=== PATIENT | female | born 1970 | race Caucasian/White ===

== ENCOUNTER 2016-12-16 19:02 | Emergency (ER) | payer OTHER ==
[2016-12-16 19:18] VITALS: BP 136/68
--- NOTE | 2016-12-16 20:16 | UC ---
Upper Extremity HPI - HPI Summary HPI Summary: Pt reports that yesterday morning that she was walking across her living room and tripped on guero toy and fell on left side of body, hitting left hip, shoulder and side of head. Pt has history of Muscular dystrophy and previous "frozen shoulder". Pt is left handed. pt woke this morning and felt stiff in left shoulder and hip. Denies LOC or headache - History of Current Complaint Chief Complaint: UCTrauma Stated Complaint: LEFT SIDE AND NECK PAIN/FELL YESTERDAY Time Seen by Provider: 12/16/16 20:06 Hx Obtained From: Patient Hx Last Menstrual Period: 11/28/16 ?: No Onset/Duration: Gradual Onset, Lasting Hours Severity Initially: Mild Severity Currently: Mild Character: Dull, Aching, Stiffness Aggravating Factor(s): Movement Associated Signs And Symptoms: Positive: Weakness - secondary to history of MD Related History: Dominant Hand Left - Risk Factors Non-Orthopedic Risk Factor: Negative - Allergies/Home Medications Allergies/Adverse Reactions: Allergies Allergy/AdvReac Type Severity Reaction Status Date / Time No Known Allergies Allergy Verified 12/16/16 19:18 PMH/Surg Hx/FS Hx/Imm Hx Previously Healthy: No - see PMH Endocrine History Of: Reports: Diabetes Denies: Thyroid Disease Cardiovascular History Of: Reports: Cardiac Disorders - SVT Denies: Hypertension Respiratory History Of: Denies: Asthma - Surgical History Surgical History: Yes Surgery Procedure, Year, and Place: c- section x 2, gall bladder, cardiac ablasion, right wrist cyst removed - Family History Known Family History: Positive: Hypertension - Social History Alcohol Use: None Substance Use Type: None Smoking Status (MU): Never Smoked Tobacco Review of Systems Constitutional: Negative Skin: Negative Eyes: Negative ENT: Negative Respiratory: Negative Cardiovascular: Negative Gastrointestinal: Negative Genitourinary: Negative Motor: Decreased ROM - left shoulder Neurovascular: Negative Musculoskeletal: Arthralgia - left shoulder, Myalgia - left shoulder Neurological: Negative Psychological: Negative All Other Systems Reviewed And Are Negative: Yes Physical Exam Triage Information Reviewed: Yes Appearance: Well-Appearing, Obese Vital Signs: Initial Vital Signs Temp 98.8 F 12/16/16 19:13 Pulse 94 12/16/16 19:13 Resp 18 12/16/16 19:13 BP 136/68 12/16/16 19:13 Pulse Ox 100 12/16/16 19:13 Vital Signs Reviewed: Yes Neck exam: Normal Respiratory Exam: Normal Cardiovascular Exam: Normal Musculoskeletal Exam: Normal Musculoskeletal: Positive: Strength Limited @ - secondary to MD, ROM Limited @ - left shoulder active ROm limited. Full passive ROM to left shoulder Neurological Exam: Other - has history of MD Psychological Exam: Normal Skin Exam: Normal Upper Extremity Course/Dx - Differential Dx/Diagnosis Differential Diagnosis/HQI/PQRI: Contusion, Fracture (Closed) Provider Diagnoses: contusion to left shoulder. contusion to left hip Discharge - Discharge Plan Condition: Stable Disposition: HOME Patient Education Materials: Contusion in Adults (ED), Exercises for Shoulder Flexion and Extension (ED) Referrals: Viola Gee MD [Primary Care Provider] -
== END 2016-12-16 20:28 | disposition home or self-care (01) ==
LOC: UCCORT 19:02
DX: S40.012A Contusion of left shoulder, initial encounter (principal); S70.02XA Contusion of left hip, initial encounter; W01.0XXA Fall on same level from slipping, tripping and stumbling without subsequent striking against object, initial encounter; Y93.9 Activity, unspecified; Y99.9 Unspecified external cause status; I47.1 Supraventricular tachycardia; G71.0 Muscular dystrophy
CPT/HCPCS: 99211; G0463

== ENCOUNTER 2017-10-30 19:12 | Emergency (ER) | payer OTHER ==
[2017-10-30 19:26] VITALS: BP 100/72
--- NOTE | 2017-10-30 19:49 | UC ---
Skin Complaint HPI - HPI Summary HPI Summary: 47 y/o female presents to the urgent care c/o bump in the back of her scalp for the past 2 weeks. Pt states it started w/ as a rash and then it developed into a itchy bump. the it has been painful w. some drainage for the past 2 days. Pain is 5/10 w/ touch. She has not applied or taking anything to alleviate symptoms. Pt denies fever, Hx of MRSA, CHAIDEZ, dizziness, SOB, chest pain, abdominal pain, N/V/D. - History of Current Complaint Chief Complaint: UCSkin Time Seen by Provider: 10/30/17 19:34 Stated Complaint: LUMP BACK OF NECK Hx Obtained From: Patient Hx Last Menstrual Period: 10/17/17 ?: No Onset/Duration: Gradual Onset, Lasting Weeks - 2 weeks, Still Present, Worse Since - 2 days Skin Exposure Onset/Duration: Weeks Ago - 2 weeks Onset Severity: Mild Current Severity: Moderate Pain Intensity: 5 Pain Scale Used: 0-10 Numeric Location: Discrete - posterior scalp Character: Pruritus, Redness - some crusting, Painful Aggravating Factor(s): Touch Alleviating Factor(s): Nothing Associated Signs & Symptoms: Positive: Rash, Drainage - clear, Tenderness. Negative: Fever, Chills Related History: Diabetes - Allergy/Home Medications Allergies/Adverse Reactions: Allergies Allergy/AdvReac Type Severity Reaction Status Date / Time No Known Allergies Allergy Verified 10/30/17 19:26 Home Medications: Home Medications Midodrine (NF) 5 mg PO BID 10/30/17 [History Confirmed 10/30/17] Review of Systems Constitutional: Negative Skin: Rash - bumpt in the posterior scalp Eyes: Negative ENT: Negative Respiratory: Negative Cardiovascular: Negative Gastrointestinal: Negative Genitourinary: Negative Motor: Negative Neurovascular: Negative Musculoskeletal: Negative Neurological: Negative Psychological: Negative Is Patient Immunocompromised?: No All Other Systems Reviewed And Are Negative: Yes PMH/Surg Hx/FS Hx/Imm Hx Previously Healthy: Yes Endocrine History: Diabetes, Hypothyroidism Other Endocrine History: Muscular distrophy Other Cardiovascular History: SVT - Surgical History Surgical History: Yes Surgery Procedure, Year, and Place: c- section x 2, gall bladder, cardiac ablasion, right wrist cyst removed - Family History Known Family History: Positive: Cardiac Disease, Hypertension, Diabetes - Social History Occupation: Employed Full-time Lives: With Family Alcohol Use: Rare Substance Use Type: None Smoking Status (MU): Never Smoked Tobacco Physical Exam - Summary Physical Exam Summary: Vital Signs Reviewed: Yes General: well developed, well nourished obese female sitting in the examining table w/o any apparent distress Eye Exam: Normal Eyes: Positive: Conjunctiva Clear - PERRLA, EOMI, fundi grossly normal ENT: Positive: Normal ENT inspection, Hearing grossly normal, Pharynx normal, TMs normal Neck: Positive: Supple, Nontender, No Lymphadenopathy Respiratory: Positive: Chest non-tender, Lungs clear, Normal breath sounds, No respiratory distress Cardiovascular: Positive: RRR, No Murmur, Pulses Normal, Brisk Capillary Refill Abdomen Description: Positive: Nontender, No Organomegaly, Soft. Negative: CVA Tenderness (R), CVA Tenderness (L) Bowel Sounds: Positive: Present Musculoskeletal: Positive: Strength Intact, ROM Intact, No Edema Neurological: Positive: Alert, Muscle Tone Normal Psychological Exam: Normal Skin: Positive: small erythematous pustule that is indurated and fluctuant, tender to palpation, swollen, and warm to touch about .5cmx 05cm in size w/ a brown crusting on top like stuck on and some surrounding scaling. FROM of Head and neck, sensation is intact, capillary refill WNL, reflexes WNL Triage Information Reviewed: Yes Vital Signs: Initial Vital Signs Temp 97.8 F 10/30/17 19:22 Pulse 98 10/30/17 19:22 Resp 18 10/30/17 19:22 BP 100/72 10/30/17 19:22 Pulse Ox 100 10/30/17 19:22 Course/Dx - Course Course Of Treatment: 47 y/o female presents to the urgent care c/o bump in the back of her scalp for the past 2 weeks. Pt states it started w/ as a rash and then it developed into a itchy bump. the it has been painful w. some drainage for the past 2 days. Pain is 5/10 w/ touch. She has not applied or taking anything to alleviate symptoms. Pt denies fever, Hx of MRSA, CHAIDEZ, dizziness, SOB , chest pain, abdominal pain, N/V/D. Hx obtained. Pt w/ a small indurated crusting lesion or abscess on the posterior scalp about 0.5cm x 0.5cm in size on examination. PT w/ small erythematous pustule that is indurated and fluctuant, tender to palpation, swollen, and warm to touch about .5cmx 05cm in size w/ a brown crusting on top like stuck on and some surrounding scaling. DR Roberts consulted on Pt's symptoms. Dr Roberts recommended I&D and wound culture and Rx ABx to cover for MRSA. I&D of abscess procedure:The procedure was explained and consent obtained. Mcdonald protocol performed. The wound was anesthetized with 2mL of Lido 1% with good anesthesia. Sterile drape and prep were done. The fluctuant center was incised with #11 blade scalpel. A smallamount of caseous material was expressed, then minimum blood . wound cultures obtained and sent to lab to r/o MRSA. The wound was probed and irrigated with normal saline. No need to pack wound. Bacitracin topical ointment applied and wound covered with sterile dressing. The patient tolerated the procedure well. Pt Rx Bactrim PO . Advised to return to the urgent care or F/U w/ PCP in 3 days for wound check up. Pt advised fever develops and pain increase despite ABX to go immediately to the ER for further management. Pt also advised if she developes a rash after abscess completely resolved to f/u w/ Dermaltologist for further evaluation. Pt understood and agreed with D/C instructions. Left the clinic ambulating A&OX3. - Differential Diagnoses - Skin Complaint Differential Diagnoses: Abscess, Cellulitis, Diabetes, MRSA, Other - cyst, seborrhic keratosis, - Diagnoses Provider Diagnoses: 1- Incision and drainage of posterior Scalp abscess Discharge - Discharge Plan Condition: Stable Disposition: HOME Prescriptions: Bacitracin OINTMENT* 1 applic TOPICAL TID #1 tube Sulfamethox/Trimethoprim DS* [Bactrim DS 800/160 TAB*] 1 tab PO BID #20 tab Patient Education Materials: Abscess (ED) Referrals: Viola Gee MD [Primary Care Provider] - 3 Days Rosibel Rodriguez [Medical Doctor] - If Needed Additional Instructions: 1-Please take full course of antibiotic to avoid resistance. Keep wound clean and dry with a sterile dressing. Apply bacitracin topical as directed 2- F/u wound check up in 3 days with your PCP to see if wound is improving 3-. Take Tylenol PO q4-6hrs prn for pain or swelling. 4-If you develop fever or redness despite antibiotic please go to the ER immediately or return to the Urgent care for further management 5- Wound culture sent to lab, if any abnormal result you will receive a call from us. 6- If rash returns after this abscess completely resolves, please f/u w/ [facility] for further evaluation and treatment.
[2017-10-30] MEDS ORDERED: Lidocaine 1% MPF* 2 ML VIAL INJ ONE (19:53)
[2017-10-30] MEDS ORDERED: Lidocaine 1% MPF* 2 ML VIAL ONE (19:55)
--- NOTE | 2017-11-01 07:21 | UC ---
- Progress Note Progress Note: Cx + St. aureus, mrsa neg. Sens pending. Taking bactrim. RN to call pt, continue bactrim unless otherwise advised.
== END 2017-10-30 20:34 | disposition home or self-care (01) ==
LOC: UCCORT 19:12
DX: L02.811 Cutaneous abscess of head [any part, except face] (principal); B95.61 Methicillin susceptible Staphylococcus aureus infection as the cause of diseases classified elsewhere
CPT/HCPCS: 10060; 87070; 87077; 87186; 87205; 87640; 87641; 99212; G0463